=== PATIENT | female | born 1990 | race Caucasian/White ===

== ENCOUNTER 2024-12-28 21:02 | Emergency (ER) | payer OTHER ==
[2024-12-28] MEDS ORDERED: Ketorolac Tromethamine 30 MG (1 mL) VIAL ONE (21:17)
[2024-12-28 21:27] LABS: #Basophils 0.1 thou/uL (0.0-0.2); #Eosinophils 0.0 thou/uL (0.0-0.7); #Lymphocytes 1.9 thou/uL (1.20-3.40); #Monocytes 0.6 thou/uL (0.11-0.59); #Neutrophils 7.3 thou/uL (1.40-6.50); %Basophils 0.7 % (0.0-1.0); %Eosinophils 0.0 % (0.0-10.0); %Lymphocytes 19.1 % (21.0-51.0); %Monocytes 6.3 % (0.0-10.0); %Neutrophils 74.0 % (42.0-75.0); Hematocrit 46.7 % (36.0-47.0); Hemoglobin 15.2 g/dL (12.0-16.0); Mean Corpuscular Hemoglobin 30.7 pg (27.0-31.0); Mean Corpuscular Volume 94.1 fl (78.0-98.0); Platelet Count 318 10x3/uL (130-400); Red Blood Cell (RBC) Count 4.96 mill/uL (4.20-5.40); White Blood Cell (WBC) Count 9.9 10x3/uL (4.8-10.8)
[2024-12-28 21:44] LABS: ALT (SGPT) 12 U/L (Less than 34); AST (SGOT) 21 U/L (11-34); Albumin 4.4 g/dL (3.1-4.5); Alkaline Phosphatase 75 U/L (40-110); Anion Gap 18 mmol/L (10-20); BUN (Urea Nitrogen) 9 mg/dL (7.0-18.7); Bilirubin, Total 0.5 mg/dL (0.3-1.2); Calc. Creatinine Clearance 0 mL/min (70-130); Calcium 9.5 mg/dL (7.8-10.44); Carbon Dioxide 22 mmol/L (22-29); Chloride 104 mmol/L (98-107); Globulin 3.0 g/dL (2.4-3.5); Glucose 109 mg/dL (70-105); Lipase 18 U/L (8-78); Potassium 3.6 mmol/L (3.5-5.1); Sodium 140 mmol/L (136-145); Troponin I Less than 0.010 ng/mL (< 0.028)
[2024-12-28 21:58] LABS: CAUTI Indications for Culture Pelvic or flank pain; Glucose, Urine (Dipstick) Negative (Negative); Leukocyte Negative (Negative); Protein, Urine (Dipstick) Negative (Neg-Trace); RBC/HPF 0-3 HPF (0-3); Specific Gravity, Urine Less/Equal 1.005 (1.005-1.030); WBC/HPF 0-3 HPF (0-3)
[2024-12-28 21:59] LABS: Bacteria/HPF Rare-Few HPF (None Seen); Urine Culture Reflex No No
== END 2024-12-28 23:12 | disposition home or self-care (01) ==
LOC: MADERS 21:02
DX: R07.89 Other chest pain (principal); R10.30 Lower abdominal pain, unspecified; R11.2 Nausea with vomiting, unspecified; K58.9 Irritable bowel syndrome, unspecified; F17.290 Nicotine dependence, other tobacco product, uncomplicated
CPT/HCPCS: 36415; 71045; 74176; 80053; 81001; 83605; 83690; 84484; 85025; 87040; 93005; 96361; 96365; 96375; J1885; J2550; J7030